=== PATIENT | female | born 1965 | race African-American/Black ===

== ENCOUNTER 2017-02-24 13:39 | Emergency (ER) | payer OTHER ==
[~2017-02-24] VITALS: Ht 154.9 cm; Wt 52.4 kg
[~2017-02-24 13:39] MED LIST: ADVAIR HFA120 INHALA; ALLERGY MEDICATION; ASPIR 8181 M1 PO; ASPIRIN EC325 MG PO; BABY ASPIRIN81 MG PO; BP MED; CLOPIDOGREL75 MG PO; CLOTRIMAZOLE-BE15 GM TP; GLUCOPHAGE1000 MG PO; GLUCOPHAGE500 MG PO; INDOCIN25 MG PO; LIDODERM 5% P1 PATCH PO; LISINOPRIL2.5 MG PO; LOPRESSOR25 MG PO; LYRICA75 MG PO; METFORMIN HCL500 MG PO; MOTRIN800 MG PO; NAPROSYN-EC500 MG PO; NICOTINE PATCH1 EAC2 TD; NOLVADEX20 MG PO; NORVASC5 MG PO; PERCOCET 7.51 TABLET PO; PRAVACHOL20 MG PO; TAMOXIFEN CITRA20 MG PO; ULTRAM50 MG PO; VOLTAREN 1% GE100 GM TP; [UNRECOGNIZED DRUG - REMARK]; diazepam
[2017-02-24 13:59] LABS: POINT-OF-CARE METER ID UU13113800
[2017-02-24 14:58] LABS: MCH 26.1 PG (29.0-34.0); MCHC 32.4 G/DL (30.0-36.0); MCV 80.5 FL (83-99); RBC DIS.WIDTH-CV 15.3 % (11.8-14.6); RBC DIS.WIDTH-SD 43.9 % (39-53); RED BLOOD COUNT 5.59 M/uL (3.80-5.20); WHITE BLOOD COUNT 7.7 K/uL (4.1-10.2)
[2017-02-24 15:09] LABS: CHLORIDE 101 mEq/L (99-109); POTASSIUM 3.2 mEq/L (3.7-5.4); SODIUM 140 mEq/L (136-147)
[2017-02-24 15:11] LABS: GLUCOSE 98 mg/dL (70-99)
[2017-02-24 15:12] LABS: ANION GAP 11 MEQ/L (2-14)
[2017-02-24 15:13] LABS: TOTAL BILIRUBIN 0.4 mg/dL (0.0-1.0)
[2017-02-24 15:15] LABS: ALKALINE PHOSPHATASE 77 IU/L (3-129); GFR ESTIMATE (CALCULATED) > 59 mL/min/
[2017-02-24 15:16] LABS: UREA NITROGEN (BUN) 11 mg/dL (9-23)
[2017-02-24 15:39] LABS: PLATELET CLUMPS PRESENT - PLATELET COUNT APPEARS ADQ.; PLATELET COUNT UNABLE TO REPORT K/uL (156-360)
[2017-02-24 18:04] VITALS: BP 159/87
== END 2017-02-24 18:05 | disposition home or self-care (01) ==
LOC: EME 13:39
PROVIDERS: Physician Assistant
DX: E87.6 Hypokalemia (principal); M79.604 Pain in right leg; M79.605 Pain in left leg; T50.906A Underdosing of unspecified drugs, medicaments and biological substances, initial encounter; Z91.128 Patient's intentional underdosing of medication regimen for other reason; E11.9 Type 2 diabetes mellitus without complications; I10 Essential (primary) hypertension; I25.2 Old myocardial infarction; F17.200 Nicotine dependence, unspecified, uncomplicated; Z85.3 Personal history of malignant neoplasm of breast; Z86.73 Personal history of transient ischemic attack (TIA), and cerebral infarction without residual deficits; Z88.0 Allergy status to penicillin; Z79.84 Long term (current) use of oral hypoglycemic drugs
CPT/HCPCS: 71020; 74177; 80053; 81003; 82948; 84443; 85027; 99281; 99285; J3010; J7030

== ENCOUNTER → 2017-04-20 | Outpatient (CLI) | payer OTHER ==
[~2017-04-20] VITALS: Ht 154.9 cm; Wt 54.9 kg
[~2017-04-20] MED LIST changes: +LOTRIMIN AF24 GM TP; +PROAIR RESPICL90 MCG IH; +REMERON15 M2 PO
[2017-04-20 09:51] LABS: POINT-OF-CARE METER ID UU14107333
== END | disposition home or self-care (01) ==
LOC: AMB 09:18
PROVIDERS: Internal Medicine Cardiovascular Disease
PROC: B246ZZ4 Ultrasonography of Right and Left Heart, Transesophageal (ICD-10-PCS; principal; 2017-04-20)
DX: I67.9 Cerebrovascular disease, unspecified (principal); Z86.73 Personal history of transient ischemic attack (TIA), and cerebral infarction without residual deficits; I34.0 Nonrheumatic mitral (valve) insufficiency; F17.200 Nicotine dependence, unspecified, uncomplicated; R06.02 Shortness of breath; I10 Essential (primary) hypertension; E11.9 Type 2 diabetes mellitus without complications; R13.10 Dysphagia, unspecified; E78.5 Hyperlipidemia, unspecified; Z79.84 Long term (current) use of oral hypoglycemic drugs; Z79.818 Long term (current) use of other agents affecting estrogen receptors and estrogen levels
CPT/HCPCS: 82948; 93312; J2250; J3010

== ENCOUNTER 2017-10-05 11:00 | Emergency (ER) | payer OTHER ==
[~2017-10-05] VITALS: Ht 154.9 cm; Wt 49.2 kg
[2017-10-05 12:31] LABS: HEMATOCRIT 42.3 % (36.0-46.0); MCHC 33.1 G/DL (30.0-36.0); MCV 81.5 FL (83-99); PLATELET COUNT 210 K/uL (156-360); RBC DIS.WIDTH-SD 44.8 % (39-53); RED BLOOD COUNT 5.19 M/uL (3.80-5.20)
[2017-10-05 12:39] LABS: CHLORIDE 99 mEq/L (99-109); POTASSIUM 3.5 mEq/L (3.7-5.4); SODIUM 139 mEq/L (136-147)
[2017-10-05 12:40] LABS: GLUCOSE 110 mg/dL (70-99)
[2017-10-05 12:44] LABS: GFR ESTIMATE (CALCULATED) > 59 mL/min/
[2017-10-05 12:45] LABS: UREA NITROGEN (BUN) 15 mg/dL (9-23)
[2017-10-05 12:51] LABS: TROP-I INTERPRETATION NEGATIVE; TROPONIN-I < 0.01 ng/mL (0.0-0.30)
[2017-10-05 13:45] LABS: ALBUMIN 4.1 g/dL (3.2-4.8); AMYLASE 65 IU/L (1-118)
[2017-10-05 13:49] LABS: TOTAL BILIRUBIN 0.5 mg/dL (0.0-1.0)
[2017-10-05 13:50] LABS: ALKALINE PHOSPHATASE 94 IU/L (3-129)
[2017-10-05 13:53] LABS: AST (GOT) 19 IU/L (2-34); DIRECT BILIRUBIN 0.2 mg/dL (0.0-0.3)
[2017-10-05 13:54] LABS: ALT (GPT) 15 IU/L (3-49); LIPASE 28 U/L (1.0-51.0)
[2017-10-05 15:07] LABS: APPEARANCE CLEAR ((CLEAR)); BILIRUBIN NEGATIVE; BLOOD NEGATIVE; COLOR YELLOW ((YELLOW)); GLUCOSE (STRIP) NEGATIVE; KETONES NEGATIVE; LEUKOCYTES TRACE; NITRITE NEGATIVE; PROTEIN (STRIP) 30; SPECIFIC GRAVITY 1.046 (1.000-1.030)
[2017-10-05 15:13] LABS: BACTERIA NONE SEEN /HPF; EPITHELIAL CELLS RARE /HPF; MUCUS TRACE /LPF; RED BLOOD CELLS 0-5 /HPF (0-5); WHITE BLOOD CELLS 0-5 /HPF (0-5)
[2017-10-05 15:52] LABS: TROP-I INTERPRETATION NEGATIVE; TROPONIN-I < 0.01 ng/mL (0.0-0.30)
[2017-10-05] MEDS ORDERED: OMEPRAZOLE40 M1 PO (16:26)
[2017-10-05 17:21] VITALS: BP 120/79
== END 2017-10-05 17:22 | disposition home or self-care (01) ==
LOC: EME 11:00
PROVIDERS: Physician Assistant
DX: R10.13 Epigastric pain (principal); N28.1 Cyst of kidney, acquired; K82.8 Other specified diseases of gallbladder; R00.1 Bradycardia, unspecified; R94.31 Abnormal electrocardiogram [ECG] [EKG]; E11.9 Type 2 diabetes mellitus without complications; K21.9 Gastro-esophageal reflux disease without esophagitis; I25.2 Old myocardial infarction; F41.9 Anxiety disorder, unspecified; F17.200 Nicotine dependence, unspecified, uncomplicated; Z79.51 Long term (current) use of inhaled steroids; Z79.84 Long term (current) use of oral hypoglycemic drugs; Z86.73 Personal history of transient ischemic attack (TIA), and cerebral infarction without residual deficits; Z90.711 Acquired absence of uterus with remaining cervical stump; Z85.3 Personal history of malignant neoplasm of breast; Z88.0 Allergy status to penicillin
CPT/HCPCS: 71046; 74177; 80048; 80076; 81003; 82150; 83690; 84484; 85027; 93005; 99281; 99284; J2405; J3010; J7030